=== PATIENT | male | born 1995 | race Caucasian/White ===

== ENCOUNTER 2024-04-16 16:01 | Emergency (ER) | payer SELFPAY ==
[~2024-04-16] VITALS: Ht 180.3 cm; Wt 103.0 kg
[2024-04-16 16:21] VITALS: O2SAT 100
[2024-04-16 18:41] LABS: BASOPHILS % 1.2 % (0.0-2.0); EOSINOPHILS % 0.4 % (0.0-5.0); HEMATOCRIT. 41.7 % (42.0-52.0); HEMOGLOBIN. 14.1 g/dL (14.0-18.0); LYMPHOCYTES % 29.3 % (20.0-50.0); MEAN CORPUSCULAR HGB CONC 33.8 g/dL (31.0-37.0); MEAN CORPUSCULAR VOLUME 88.7 fL (80.0-94.0); MEAN PLATELET VOLUME 8.1 fl (7.4-10.4); NEUTROPHILS % 61.1 % (40.0-76.0); PLATELET 245 x1000/uL (130-400); RED CELL DISTRIBUTION WIDTH 13.2 % (11.6-14.6); WHITE BLOOD COUNT 5.5 x1000/uL (4.5-11.0)
[2024-04-16 18:46] LABS: CHLORIDE 105 mEq/L (98-107); POTASSIUM 3.8 mEq/L (3.5-5.1); SODIUM 140 mEq/L (136-145)
[2024-04-16 18:47] LABS: CARBON DIOXIDE 28 mEq/L (21-32)
[2024-04-16 18:48] LABS: CALCIUM 9.6 mg/dL (8.7-10.4)
[2024-04-16 18:53] LABS: GLUCOSE 98 mg/dL (70-105); UREA NITROGEN BLOOD 12 mg/dL (9-23)
[2024-04-16 18:54] LABS: TROPONIN I HIGH SENSITIVITY 26 ng/L (3.0-53)
[2024-04-16 20:40] LABS: TROPONIN I HIGH SENSITIVITY 17 ng/L (3.0-53)
[2024-04-16 21:15] VITALS: BP 155/88; PULSE 74; RESP 18; TEMP 36.66960; O2SAT 99
== END 2024-04-16 21:17 | disposition home or self-care (01) ==
LOC: ER 16:01
DX: R00.2 Palpitations (principal); T43.615A Adverse effect of caffeine, initial encounter; X58.XXXA Exposure to other specified factors, initial encounter
CPT/HCPCS: 36415; 80048; 84484; 85025; 93005; 99284